=== PATIENT | female | born 1980 | race Caucasian/White ===

== ENCOUNTER 2016-10-22 13:04 | Emergency (ER) | payer MEDICARE, MEDICAID ==
--- NOTE | ~2016-10-22 | ER ---
PATIENT'S NAME: BASSAM DURAN [facility] AGE: 36 Y [address] ROOM: [place] [address] LOCATION: [facility] ADMIT DATE: 10/22/2016 ER/Outpatient Report DISCHARGE DATE: 10/22/2016 FAMILY PHYSICIAN: Osman Ariza MD ATTENDING PHYSICIAN: Kathy Blankenship Time of Arrival: 1304. Time of Exam: 1304. CHIEF COMPLAINT: Seizure. HISTORY OF PRESENT ILLNESS: The patient arrived per [facility]. She was at work working at [employer] when she had a brief generalized seizure. She has a history of seizures and has not had one for quite some time. Paramedics were unable to determine from employees at [facility] how long the seizure lasted. Upon arrival to the ER, the patient denies having any pain. She does state she has a bit of a headache, but has no other complaints. She states she has not felt ill prior to this and has not had a fever, cough, cold, congestion, or runny nose. Has not had any change in her bowel or bladder pattern. ALLERGIES: SHE HAS NO KNOWN ALLERGIES. CURRENT MEDICATIONS: On the chart and reviewed by me. PAST MEDICAL HISTORY: Seizures and mild mental disability. SOCIAL HISTORY: She works at [employer]. Her sister did join her here in the ER. She denies use of tobacco, drugs, or alcohol. REVIEW OF SYSTEMS: All negative other than those mentioned in the HPI. PHYSICAL EXAMINATION: VITAL SIGNS: She weighed 87.7 kg. Blood pressure was 118/82, pulse of 102, respirations 16, temperature of 98.9, O2 saturation was 92% on room air. [place] Coma Scale is 15. GENERAL: She is awake, alert, and oriented x4. SKIN: [place], warm, and dry. RESPIRATIONS: Even and unlabored. PATIENT'S NAME: BASSAM DURAN [facility] AGE: 36 Y [address] ROOM: [place] [address] LOCATION: [facility] ADMIT DATE: 10/22/2016 ER/Outpatient Report DISCHARGE DATE: 10/22/2016 FAMILY PHYSICIAN: Osman Ariza MD ATTENDING PHYSICIAN: Kathy Blankenship HEENT: Pupils are equal and reactive to light. Extraocular movement is intact. LUNGS: Lung sounds are clear throughout. HEART: Regular rate and rhythm. ABDOMEN: Soft and nondistended. Bowel sounds are present. The patient does have an IV in that was started by paramedics in the left hand. The patient did have to urinate upon arrival to the ER. Did assist her in the bathroom and she had no difficulties. LABORATORY DATA: Lab work was drawn. CBC shows a white count of 3.9, hemoglobin of 12.9, hematocrit 37.8. Chem panel: Sodium is 142, potassium is 4.3, chloride is 109, BUN is 18, creatinine 1. UA was obtained. It does have 500 leukocytes. There was 20-50 white blood cells, 10-20 epithelial cells, moderate bacteria. We will culture this. Prolactin was completed. It is normal at 11.1. EMERGENCY DEPARTMENT COURSE: The patient rested comfortably on the cart. Did not have any seizure-like activity. Vital signs remained stable. IMPRESSION: 1. History of seizure. 2. Urinary infection. PLAN: Home, rest, fluids. Continue current medications. Prescription was written for Bactrim DS to take and to follow up with her primary provider, Dr. Ariza in the next 2 to 3 days. Did draw levels of her seizure medicines and discussed with the patient and the patient's sister that those results will not be available for a couple of days. They need to follow up with Dr. Arzia to discuss of her med levels. The patient and her sister verbalized understanding. ANNA GRUBBS APRN FOR MD KRISTIE TOVAR/warren /[id number] d: 10/22/16 2256 t: 10/23/16 1212, OUTPATIENT REPORT
[~2016-10-22 13:04] MED LIST changes: -BACTRIM DS1 TAB PO
[2016-10-22 13:43] LABS: BILIRUBIN URINE NEGATIVE (NEGATIVE); BLOOD URINE 150 /UL (NEGATIVE); COLOR URINE YELLOW (YELLOW); GLUCOSE URINE NEGATIVE (NEGATIVE); KETONE URINE NEGATIVE (NEGATIVE); LEUKOCYTES URINE 500 /UL (NEGATIVE); NITRITE URINE NEGATIVE (NEGATIVE); PH URINE 6.5 (4.0-8.0); PROTEIN URINE 15 mg/dL (NEGATIVE); SPEC GRAVITY URINE 1.015 (1.003-1.035); TURBIDITY URINE 1+ (CLEAR); UROBILINOGEN URINE NORMAL (NORMAL)
[2016-10-22 14:01] LABS: BACTERIA URINE MODERATE (NEGATIVE); WBC URINE 20-50 #/HPF (NEGATIVE)
[2016-10-22 14:20] LABS: BASOPHIL % 0.5 %; HEMATOCRIT 37.8 % (33.0-46.0); HEMOGLOBIN 12.9 g/dL (11.0-15.0); IMMATURE GRANULOCYTE % 0.3 %; LYMPHOCYTE # 1.2 K/uL (0.8-4.0); MCHC 34.1 gm/dL (32.0-36.5); MCV 102.4 fl (83.0-98.0); MONOCYTE # 0.4 K/uL (0.0-1.0); MONOCYTE % 10.7 %; MPV 9.1 fl (9.4-12.4); NEUTROPHIL # (ANC) 2.2 K/uL (1.8-7.8); NEUTROPHIL % 56.5 %; NRBC % 0 /100WBC (0-0.00); PLATELET COUNT 229 K/uL (150-450); RBC 3.69 M/uL (3.50-5.50); RDW-CV 14.2 % (11.9-14.6); WBC 3.9 K/uL (4.0-11.0)
[2016-10-22 14:33] LABS: ALBUMIN 3.6 gm/dL (3.5-5.0); ALK PHOS 93 IU/L (33-138); ALT 20 IU/L (12-78); ANION GAP 9.3 (10.0-19.0); AST 16 IU/L (10-40); BLOOD UREA NITROGEN 18 mg/dL (6-24); CALCIUM 8.3 mg/dL (8.5-10.5); CHLORIDE 109 mMol/L (96-110); CO2 28 mMol/L (22-32); ESTIMATED GFR (MDRD EQUATION) > 60; POTASSIUM 4.3 mMol/L (3.7-5.1); SODIUM 142 mMol/L (135-145); TOTAL BILIRUBIN 0.2 mg/dL (0.0-1.5); TOTAL PROTEIN 6.9 g/dL (6.0-8.4)
[2016-10-26 17:09] LABS: FELBAMATE 97 ug/mL (())
[2016-11-27] MEDS ORDERED: BACTRIM DS1 TAB PO (16:03)
== END 2016-10-22 14:58 | disposition disaster alternative care site (69) ==
LOC: GMED 13:04
PROVIDERS: Family Medicine
DX: N39.0 Urinary tract infection, site not specified (principal); G40.409 Other generalized epilepsy and epileptic syndromes, not intractable, without status epilepticus; Z79.899 Other long term (current) drug therapy
CPT/HCPCS: 80299; G0480

== ENCOUNTER → 2016-10-22 | Outpatient (CLI) | payer MEDICARE, MEDICAID ==
[~2016-10-22] MED LIST: ACYCLOVIR400 MG PO; AMOXICILLIN875 MG PO; BACTRIM DS1 TAB PO; CALCIUM CARBON600 MG PO; CLARITIN10 MG PO; FELBATOL PO; FOSAMAX70 MG PO; KEPPRA1000 MG PO; LEXAPRO10 MG PO; NAPROSYN500 MG PO; NEXIUM40 MG PO; NUVIGIL150 MG PO; ONFI10 MG PO; PEPCID20 MG PO; PRENATAL 1+1)(P1 TAB PO; SINGULAIR10 MG PO; VITAMIN D1000 UNIT PO
== END | disposition disaster alternative care site (69) ==
LOC: GAMB 12:50
DX: R56.9 Unspecified convulsions (principal)
CPT/HCPCS: A0425; A0429

== ENCOUNTER 2016-11-12 19:24 | Emergency (ER) | payer MEDICARE, MEDICAID ==
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
[2016-11-27] MEDS ORDERED: BACTRIM DS1 TAB PO (16:03)
== END 2016-11-12 20:34 | disposition disaster alternative care site (69) ==
LOC: GACC 19:24
PROC: 2W2QX4Z Dressing of Right Lower Leg using Bandage (ICD-10-PCS; principal; 2016-11-12)
DX: T24.301A Burn of third degree of unspecified site of right lower limb, except ankle and foot, initial encounter (principal); T31.0 Burns involving less than 10% of body surface; X10.2XXA Contact with fats and cooking oils, initial encounter; Y93.G3 Activity, cooking and baking